=== PATIENT | female | born 1955 | race African-American/Black ===

== ENCOUNTER 2018-01-19 08:30 | Outpatient (CLI) | payer MEDICARE ==
--- NOTE | 2018-01-19 11:59 | CT ---
CT HEAD NONCONTRAST: History: Headache. FINDINGS: There is no evidence of acute intracranial hemorrhage or infarct. Ventricles appear normal in size, s hape, and position. Dense calcification is apparent at the pineal gland. No mass effect or shift of m idline structures. Small mucous retention cyst right maxillary sinus partially visualized. IMPRESSION: No acute intracranial abnormalities are demonstrated on noncontrast CT head. POS: [facility]
== END 2018-01-19 08:31 | disposition home or self-care (01) ==
LOC: NAV CT 08:30
PROVIDERS: ATTEND Family Medicine
DX: R51 Headache (principal)
CPT/HCPCS: 70450

== ENCOUNTER 2023-03-23 11:01 | Outpatient (CLI) | payer MEDICARE | END 2023-03-23 11:02 | disposition home or self-care (01) | LOC: NAV RAD 11:01 | PROVIDERS: ATTEND Student in an Organized Health Care Education/Training Program | DX: Z01.89 Encounter for other specified special examinations (principal); Z71.85 Encounter for immunization safety counseling; M25.50 Pain in unspecified joint; E55.9 Vitamin D deficiency, unspecified; R53.83 Other fatigue; R73.09 Other abnormal glucose; R79.89 Other specified abnormal findings of blood chemistry; R79.9 Abnormal finding of blood chemistry, unspecified; M19.011 Primary osteoarthritis, right shoulder; M18.11 Unilateral primary osteoarthritis of first carpometacarpal joint, right hand; M17.0 Bilateral primary osteoarthritis of knee; M19.012 Primary osteoarthritis, left shoulder; I70.0 Atherosclerosis of aorta; M41.9 Scoliosis, unspecified; Z98.890 Other specified postprocedural states | CPT/HCPCS: 71046 ==

== ENCOUNTER 2023-07-15 15:23 | Emergency (ER) | payer MEDICARE ==
[2023-07-15] MEDS ORDERED: Acetaminophen 325 MG TAB ONE (15:56)
== END 2023-07-15 16:57 | disposition home or self-care (01) ==
LOC: NAV ERS 15:23
DX: J10.1 Influenza due to other identified influenza virus with other respiratory manifestations (principal); Z20.822 Contact with and (suspected) exposure to COVID-19
CPT/HCPCS: 87635; 87804; 99283